=== PATIENT | female | born 1970 | race Caucasian/White ===

== ENCOUNTER 2024-05-01 19:37 | Emergency (ER) | payer MEDICAID, OTHER ==
[~2024-05-01] VITALS: Ht 157.5 cm; Wt 69.1 kg
[2024-05-01 21:00] VITALS: BP 140/74; PULSE 68; RESP 16; TEMP 98.4; O2SAT 98
[2024-05-01] MEDS ORDERED: IBUP1TAB5 PO (21:18)
[2024-05-01] MEDS: IBUPROFEN 600 MG TAB PO ONE (21:36)
== END 2024-05-01 21:38 | disposition home or self-care (01) ==
LOC: ER 19:37
DX: S46.912A Strain of unspecified muscle, fascia and tendon at shoulder and upper arm level, left arm, initial encounter (principal); X58.XXXA Exposure to other specified factors, initial encounter; Y93.89 Activity, other specified; Y92.89 Other specified places as the place of occurrence of the external cause; Y99.8 Other external cause status